=== PATIENT | male | born 2000 | race Two or more races ===

== ENCOUNTER 2021-12-27 23:36 | Emergency (ER) | payer OTHER ==
[~2021-12-27] VITALS: Ht 177.8 cm; Wt 79.8 kg
[2021-12-28] MEDS ORDERED: CENTANY30 GM TOP (02:36)
[2021-12-28] MEDS ORDERED: CEPHALEXIN500 MG PO (02:36)
== END 2021-12-28 02:42 ==
LOC: ER 23:36
DX: S09.8XXA Other specified injuries of head, initial encounter (principal); Z41.3 Encounter for ear piercing; Z91.038 Other insect allergy status

== ENCOUNTER 2024-08-13 14:05 | Emergency (ER) | payer OTHER ==
[~2024-08-13] VITALS: Ht 177.8 cm; Wt 86.2 kg
[~2024-08-13 14:05] MED LIST: CENTANY30 GM TOP; CEPHALEXIN500 MG PO; KETO10TA2 PO; NORFLEX100MG PO
[2024-08-13 14:31] VITALS: BP 120/83; O2SAT 99
[2024-08-13] MEDS ORDERED: 0.9 % SODIUM CHLORIDE 1,000 ML IV STA (15:01)
[2024-08-13] MEDS ORDERED: ONDANSETRON HCL 2 MG/ML VIAL IV STA (15:02)
[2024-08-13] MEDS ORDERED: METOCLOPRAMIDE HCL 10 MG in 0.9 % SODIUM CHLORIDE 50 ML IV ONE (15:15)
[2024-08-13] MEDS ORDERED: FAMOtidine 10 MG/ML (4ML VIAL) IV SCH (15:15)
[2024-08-13 15:25] LABS: MEAN CELL VOLUME 92.7 fL (80.0-100.00); MEAN CORPUSCULAR HEMOGLOBIN 31.6 pg (27.00-32.0); MEAN CORPUSCULAR HGB CONC 34.1 g/dl (32.0-36.0); PLATELET COUNT 177 K/uL (150-450); RED BLOOD COUNT 4.74 M/uL (4.00-6.00); RED CELL DISTRIBUTION WIDTH 13.8 % (11.5-14.5)
[2024-08-13 16:23] LABS: CALCIUM 9.6 mg/dL (8.5-10.1); CREATININE SERUM 1.09 mg/dL (0.70-1.30); GFR 83.11; POTASSIUM 3.68 mEq/L (3.5-5.1)
[2024-08-13] MEDS ORDERED: METHYLPREDNISOLONE SOD SUCC 125 MG VIAL IV ONE (17:30)
[2024-08-13] MEDS ORDERED: KETOROLAC TROMETHAMINE 30 MG VIAL IV ONE (17:30)
[2024-08-13] MEDS ORDERED: PROMETHAZINE HCL 50 MG/ML AMPUL IM ONE (20:00)
[2024-08-13] MEDS ORDERED: LEVSIN/SL0.125 MG SL (20:57)
[2024-08-13] MEDS ORDERED: PEPCID AC20 MG PO (20:57)
[2024-08-13] MEDS ORDERED: CARAFATE1 GM PO (20:57)
[2024-08-13] MEDS ORDERED: ONDANSETRON ODT8 MG PO (20:57)
== END 2024-08-13 22:14 | disposition home or self-care (01) ==
LOC: ER 14:07
PROVIDERS: General Practice
DX: R10.9 Unspecified abdominal pain (principal); R11.10 Vomiting, unspecified; Z91.038 Other insect allergy status